=== PATIENT | female | born 1955 | race Caucasian/White ===

== ENCOUNTER → 2018-10-17 | Outpatient (CLI) | payer OTHER ==
[~2018-10-17] MED LIST: ATEN100T88 PO; FLUD0.1T7 PO
--- NOTE | 2018-10-17 17:56 | Diagnostic Imaging Report ---
PROCEDURE: CT abdomen and pelvis with and without contrast. TECHNIQUE: Precontrast acquisitions were acquired through the abdomen and pelvis. Multiple contiguous axial images were obtained through the abdomen and pelvis after the administration of intravenous contrast. INDICATION: Pelvic pain. COMPARISON: Study compared to 06/09/2016. FINDINGS: Thin-walled cystic mass in left adnexa today measures 5.2 x 4.5 cm, previously measuring 5.3 x 4.8 cm on the study of 2015. Heterogeneity of the uterus with a leftward oriented partly exophytic fibroid as well as likely a right fundal fibroid are better visualized at today's exam owing to the administration of contrast. The uterine morphology and volume have not significantly changed. There is some prominence of the left-sided gonadal vein and parametrial venous structures without vascular obstruction. This has not appreciably changed from prior. The gallbladder is surgically absent. The liver, spleen, adrenals, and pancreas are unremarkable. The unobstructed kidneys are unremarkable. No free air. No bowel obstruction nor ileus. No ascites, abscess, hematoma, or fluid collection. There is no appendicitis or diverticulitis. IMPRESSION: Thin-walled simple appearing left ovarian cyst, smaller than on prior. Probable uterine fibroids with some mild left-sided pelvic venous congestion without obstruction. No ascites or inflammatory process. No obstructive features or acute abnormalities. Dictated by: Dictated on workstation # [id number]
== END ==
LOC: RAD 13:51
PROVIDERS: ATTEND Obstetrics & Gynecology
DX: N83.202 Unspecified ovarian cyst, left side (principal); Z90.49 Acquired absence of other specified parts of digestive tract
CPT/HCPCS: 74178

== ENCOUNTER 2018-11-06 11:39 | Outpatient (CLI) | payer OTHER ==
[~2018-11-06] VITALS: Ht 152.4 cm; Wt 48.2 kg
[2018-11-06] MEDS ORDERED: NF-ESOM40C PO (12:04)
[2018-11-06] MEDS ORDERED: ATEN100T PO (12:04)
[2018-11-06] MEDS ORDERED: CA C1TAB75 PO (12:04)
[2018-11-06 13:21] LABS: BASOPHILS % (AUTO) 0 % (0-10); EOSINOPHILS # (AUTO) 0.1 10^3/uL (0.0-0.3); EOSINOPHILS % (AUTO) 2 % (0-10); HEMATOCRIT 41 % (35-52); HEMOGLOBIN 13.5 G/DL (11.5-16.0); LYMPHOCYTES # (AUTO) 1.9 X 10^3 (1.0-4.0); LYMPHOCYTES % (AUTO) 27 % (12-44); MEAN CORPUSCULAR HEMOGLOBIN 31 PG (25-34); MEAN CORPUSCULAR HGB CONC 33 G/DL (32-36); MEAN CORPUSCULAR VOLUME 93 FL (80-99); MEAN PLATELET VOLUME 10.1 FL (7.4-10.4); MONOCYTES # (AUTO) 0.5 X 10^3 (0.0-1.0); MONOCYTES % (AUTO) 8 % (0-12); NEUTROPHILS # (AUTO) 4.5 X 10^3 (1.8-7.8); NEUTROPHILS % (AUTO) 63 % (42-75); PLATELET COUNT 305 10^3/uL (130-400); RED CELL DISTRIBUTION WIDTH 13.8 % (10.0-14.5); WHITE BLOOD COUNT 7.1 10^3/uL (4.3-11.0)
== END 2018-11-06 16:00 ==
LOC: PREOP 11:39
PROVIDERS: ATTEND Obstetrics & Gynecology
DX: Z01.812 Encounter for preprocedural laboratory examination (principal); Z11.2 Encounter for screening for other bacterial diseases; D25.9 Leiomyoma of uterus, unspecified; R10.2 Pelvic and perineal pain
CPT/HCPCS: 36415; 85025; 86850; 86900; 86901; 87081; 93005

== ENCOUNTER 2018-11-15 08:18 | Day surgery (SDC) | payer OTHER ==
[~2018-11-15] VITALS: Ht 152.4 cm; Wt 48.2 kg
[~2018-11-15 08:18] MED LIST changes: +ATEN100T PO; +CA C1TAB75 PO; +NF-ESOM40C PO
[2018-11-15 08:30] VITALS: BP 129/84
[2018-11-15] MEDS ORDERED: LACTATED RINGERS 1,000 ML IV SCH ×2 (08:52→08:59)
--- NOTE | 2018-11-15 08:52 | Progress Note-Pre Operative ---
Pre-Operative Progress Note H&P Reviewed The H&P was reviewed, patient examined and no changes noted. Date Seen by Provider: Nov 15, 2018 Time Seen by Provider: 08:50 Date H&P Reviewed: Nov 15, 2018 Time H&P Reviewed: 08:50 Pre-Operative Diagnosis: Adnexal mass, Postmenopausal LEAH RUSH DO Nov 15, 2018 08:52
--- NOTE | 2018-11-15 08:54 | Discharge Inst-Women's Service ---
Discharge Inst-Women's Serv Depart Medication/Instructions New, Converted or Re-Newed RX: RX on Chart Consults/Follow Up Additional Follow Up: Yes Orders/Referrals Dr. Guerrero in 7-10 days and in 8 weeks Activity Activity: Activity as Tolerated Driving Instructions: No Driving for 1 Week NO SMOKING: NO SMOKING Nothing Inside Vagina: No Douching, No Joy, No Tampons Diet Discharge Diet: No Restrictions Symptoms to Report to : Bleeding Excessive, Pain Increased, Fever Over 101 Degrees F, Vaginal Bleeding Increase, Questions/Concerns For Any Problems or Questions: Contact Your Physician Skin/Wound Care Infection Signs and Symptoms: Increased Redness, Foul Odor of Wound, Increased Drainage, Skin Itchy or Has a Rash, Increased Swelling, Temperature Above 101 F Operative Area Clean and Dry: Keep Incision Clean/Dry Stitches/Rosana/Dermabond: Dermabond, Care of Stitches Bathing Instructions: LEAH Alexandre DO Nov 15, 2018 08:54
[2018-11-15] MEDS ORDERED: SIME80TA16 PO (08:55)
[2018-11-15] MEDS ORDERED: IBUP-844 PO (08:55)
[2018-11-15] MEDS ORDERED: HYDR-34 PO (08:55)
[2018-11-15] MEDS ORDERED: DOCU100C37 PO (08:55)
[2018-11-15] MEDS ORDERED: ONDANSETRON 4 MG/2 ML (SDV) Z0FRAN IV PRN (09:00)
[2018-11-15] MEDS ORDERED: CHLORASEPTIC LOZENGE MM PRN (09:00)
[2018-11-15] MEDS ORDERED: ANTACID SUSP 30 ML UDC (MYLANTA) PO PRN (09:00)
[2018-11-15] MEDS ORDERED: ZOLPIDEM 5 MG (AMBIEN) TAB PO PRN (09:00)
[2018-11-15] MEDS ORDERED: SIMETHICONE 80 MG (MYLICON) CHEW PO PRN (09:00)
[2018-11-15] MEDS ORDERED: ceFAZolin INJECTION 1,000 MG in WATER (STERILE) FOR INJECTION 10 ML IV ONE (09:00)
[2018-11-15] MEDS ORDERED: HYDROcodone/APAP 7.5 MG/325 MG (LORTAB, LORCET PLUS) TABLET PO PRN (09:00)
[2018-11-15] MEDS ORDERED: BUPIVACAINE 0.5% 30 ML (SENSORCAINE) VIAL ONE (09:13)
[2018-11-15] MEDS ORDERED: BUPIVACAINE 0.25% 30 ML (SENSORCAINE) VIAL ONE (09:13)
[2018-11-15] MEDS ORDERED: WATER (STERILE) FOR INJECTION 10 ML ONE (09:14)
[2018-11-15] MEDS ORDERED: FAMOTIDINE 20MG/2ML IV (PEPCID) ONE (09:14)
[2018-11-15] MEDS ORDERED: ceFAZolin INJECTION 1,000 MG ONE (09:14)
[2018-11-15] MEDS ORDERED: MIDAZOLAM 2 MG/2 ML (VERSED) VIAL ONE ×2 (09:14→09:18)
[2018-11-15] MEDS ORDERED: ROCURONIUM 10 MG/ML 5 ML SYRINGE IV ONE (09:17)
[2018-11-15] MEDS ORDERED: proPOfol 200 MG/20 ML (DIPRIVAN) VIAL IV ONE (09:17)
[2018-11-15] MEDS ORDERED: SEVOFLURANE (ULTANE) 15 ML INHAL SOLN ONE ×5 (09:17→11:58)
[2018-11-15] MEDS ORDERED: NEOSTIGMINE 1 MG/ML 5 ML SYRINGE ONE (09:17)
[2018-11-15] MEDS ORDERED: ONDANSETRON 4 MG/2 ML (SDV) Z0FRAN ONE (09:17)
[2018-11-15] MEDS ORDERED: LIDOCAINE PF 2% 5 ML (XYLOCAINE) VIAL ONE (09:17)
[2018-11-15] MEDS ORDERED: GLYCOPYRROLATE 0.2 MG/ML (ROBINUL) 2 ML VIAL ONE (09:17)
[2018-11-15] MEDS ORDERED: DEXAMETHASONE 10 MG/ML (DECADRON) 1 ML VIAL ONE (09:17)
[2018-11-15] MEDS ORDERED: fentaNYL INJECTION 100 MCG/2 ML AMP ONE (09:18)
[2018-11-15] MEDS ORDERED: MIDAZOLAM 2 MG/2 ML (VERSED) VIAL IV ONE (09:30)
[2018-11-15] MEDS ORDERED: FAMOTIDINE 20MG/2ML IV (PEPCID) IV ONE (09:30)
[2018-11-15] MEDS ORDERED: metroNIDAZOLE 500MG/100ML IVPB 100 ML IV ONE (09:45)
[2018-11-15] MEDS: LACTATED RINGERS 1,000 ML IV PRN ×2 (09:50→11:31)
[2018-11-15] MEDS ORDERED: LIDOCAINE/EPI 1%-1:100,000 (XYLOCAINE) 20ML ONE (10:34)
[2018-11-15] MEDS ORDERED: HYDROmorphone 2 MG/ML VIAL (DILAUDID) IV ONE (12:15)
[2018-11-15] MEDS ORDERED: ONDANSETRON 4 MG/2 ML (SDV) Z0FRAN IVP PRN (12:15)
[2018-11-15] MEDS ORDERED: KETOROLAC 30 MG/ML VIAL ONE (12:29)
[2018-11-15] MEDS: KETOROLAC 30 MG/ML VIAL IV PRN ×2 (12:32→18:19)
--- NOTE | 2018-11-15 13:10 | NUR ---
pt transferred to room 303 via bed with PACU staff @ side. report received from [place] Mason. care assumed of pt.
[2018-11-15 13:20] VITALS: BP 101/55
--- NOTE | 2018-11-15 14:48 | OPERATIVE REPORT ---
DATE OF SERVICE: PREOPERATIVE DIAGNOSIS: A 63-year-old female with enlarged cystic pelvic mass. POSTOPERATIVE DIAGNOSIS: A 63-year-old female with enlarged cystic pelvic mass. PROCEDURE: Robotic-assisted total laparoscopic hysterectomy with bilateral salpingo-oophorectomy. ANESTHESIA: General endotracheal. ESTIMATED BLOOD LOSS: Minimal. URINE OUTPUT: 300 mL clear at the end of the procedure. FLUIDS: Two liters of lactate Ringer solution. FINDINGS: An atrophic appearing uterus consistent with menopausal status. Grossly normal appearing bilateral fallopian tubes, grossly normal appearing right ovary; a left ovary, which is occupied by a large cystic structure, I would assume to be approximately 8 to 10 cm in diameter and appears to be simple and fluid filled. SPECIMEN SENT: Uterus, bilateral fallopian tubes and ovaries. INDICATIONS: This is a 63-year-old female patient that was sent to my office for chronic pelvic pain and the finding of an enlarging ovarian cyst that she has been following for several years. It was noted on ultrasound more recently to have grown in size and she was becoming acutely more uncomfortable. We discussed in the office for removal of this mass and we discussed the fashion in which doing it. We, briefly, had discussed doing laparotomy as the patient did want to keep her uterus if at all possible; however, I did ask her to consider performing hysterectomy not only due to the potential malignancy, but also due to an exit and removal of the mass itself through the vagina after removal of the uterus. The risk of the procedure was discussed with the patient in detail including risk of bleeding, infection, damage to surrounding structures including, but not limited to bowel, bladder, ureter, kidneys and possible need for reoperation. Postoperative precautions and postoperative recovery timeframe, restrictions were all discussed, risk from anesthesia risk of possible need for blood transfusion and even . After everything was discussed with the patient in detail, consent was obtained in the preoperative area and the patient was taken to the operating room. OPERATIVE REPORT IN DETAIL: Once in the operating room, general anesthesia was found to be adequate, placed in dorsal lithotomy position and prepped and draped in a normal sterile fashion. A Pop catheter was placed using a sterile technique after time out was performed. The patient has a very narrow vaginal introitus. Midline episiotomy was performed to allow a weighted speculum to be placed, so I could visualize the cervix, which was grasped at 12 o'clock position using a long Allis clamp and 0 Vicryl suture was placed at the anterior lip of the cervix and the Allis clamp was then removed. I then gently sound the uterine cavity and depth was found to be 8 cm. I selected an 8 cm Colleen uterine manipulator tip and a 4 cm colpotomy ring. I placed the manipulator tip and the uterus deploying the balloon and also advanced the colpotomy ring around the vaginal fornix, which after we did this, I was able to appreciate bimanual manipulation on bimanual exam. I then removed all of the instruments from the patient's vagina except for the Pop catheter and the Colleen. I then performed a change of gloves and took my attention digit to the abdomen where infraumbilically I infiltrated this area using 0.25% Marcaine and made an 8 mm incision and directed the Veress needle. The intraperitoneal placement was confirmed using saline drop test. I then proceeded with insufflation using CO2 gas and opening pressure of 4 mmHg was noted. I proceeded to maximum pressure of 15 mmHg at which point, I removed the Veress needle and introduced an 8 mm blunt da Kwaku camera trocar. Once this was in place, I was able to confirm intraperitoneal placement using the da Kwaku laparoscope. A brief scan of the upper abdominal anatomy appears to be grossly normal. Lower abdominal anatomy is listed in my findings above. The patient was placed in a steep Trendelenburg and I was able to visualize all my findings as described. I then placed two lateral trocars, placed approximately 8 cm lateral to my infraumbilical trocars and the skin was infiltrated using 0.25% Marcaine. The 8 mm incisions were made and trocars were placed under direct visualization of the laparoscope. Once these were in place, we brought in the da Kwaku robot and docked it in the appropriate fashion placing the vessel sealer in the left hand and the monopolar chichi in the right hand. I then placed the da Kwaku operative console and performed the following dissection bilaterally. First, I identified the ureters so that I may see the orientation throughout the dissection my process and can use for caution in my dissection to stay away from them. I then grasped the infundibulopelvic ligament, bipolar cauterized and transected it using the vessel sealer. I then grasped the round ligament, bipolar cauterized and transected it using the vessel sealer. I then grasped the entire broad ligament, bipolar cauterized and transected it using vessel sealer down to the level of the lower uterine segment, at which point I the anterior and posterior leaflets of the broad ligament. Anterior leaflet was taken around the anterior vaginal fornix. The posterior leaflet was taken around to the posterior vaginal fornix. This allows me to skeletonize the uterine vessels laterally, which were then bipolar cauterized and transected using the vessel sealer. I then performed a colpotomy at 12 o'clock position using the monopolar chichi and took this circumferentially around the vagina amputating the cervix from the vaginal fornix. The uterus, right tube and ovary were then removed through the vagina; however, I did amputate the left adnexa as the fallopian tube and the uteroovarian ligament using the monopolar chichi to allow removal in a separate specimen as well as to facilitate the removal as I do not feel it would fit through the vagina. I introduced a 12 cm Endopouch bag to the vagina, deploying the bag I was able to place the cyst with manipulation into the bag without rupturing it. The bag was then cinched down and I was able to remove the cyst without rupturing it through the vagina. I then performed a change of instruments on the robot and proceeded with closing the vaginal cuff with 2-0 Vicryl suture and the lateral vaginal apices in a [id number] fashion, it was used to colposuspend the vagina to the uterosacral ligaments. The remainder of the vagina was then closed using a 2-0 V-Loc in a running fashion, after which there was no active bleeding noted from any of my dissection planes. I then undocked the da Kwaku robot and proceeded with removal of the case laparoscopically. I copiously irrigated the pelvis using normal saline and once again, there was no active bleeding noted from any of dissection planes. I placed Surgiflo hemostatic agent over all my planes of dissection and had the patient taken out of steep Trendelenburg. I then removed the lateral trocars under direct visualization of the laparoscope. The infraumbilical trocar was left in place to release insufflation and to introduce 10 mL of 0.25% Marcaine in the peritoneal cavity for postoperative pain management. I then removed the trocar as well. I then closed the skin using 4-0 Monocryl interrupted subcuticular stitches. Dermabond was applied to the incision and Band-Aids were placed over the incisions as well. The patient tolerated the procedure well and was taken to the recovery area in a stable condition. Lap and sponge counts were correct at the end of the procedure and instrument counts correct as well. One gram of Ancef and 500 mg of Flagyl given preoperatively for infection prophylaxis. Pop catheter was left in place. Job ID: [id number] DocumentID: [id number] Dictated Date: 11/15/2018 12:14:04 Orthopaedic Surgeon Date: 11/15/2018 14:48:26 Dictated By: LEAH RUSH DO
--- NOTE | 2018-11-15 15:35 | NUR ---
hough catheter dc'd. 75cc urine noted. v-pad in place.
[2018-11-15 15:40] VITALS: BP 114/69
--- NOTE | 2018-11-15 16:35 | NUR ---
here to see pt.
--- NOTE | 2018-11-15 17:00 | NUR ---
assisted up to BR. voided 200cc urine. amanda-care offered. v-pad and panties in place.
--- NOTE | 2018-11-15 18:17 | NUR ---
assisted up to void. 200cc urine noted. scant vaginal bleeding noted on v-pad.
--- NOTE | 2018-11-15 18:18 | NUR ---
was called r/t IV infiltration. may dc IV
--- NOTE | 2018-11-15 18:30 | NUR ---
IV site dc'd
--- NOTE | 2018-11-15 18:36 | NUR ---
RT notified of IS order
--- NOTE | 2018-11-15 19:08 | NUR ---
report given to next shift.
[2018-11-15 23:15] VITALS: BP 97/58
[2018-11-15] MEDS: IBUPROFEN 600 MG (MOTRIN) TAB PO PRN (23:15)
[2018-11-15] MEDS: DOCUSATE SODIUM 100 MG (COLACE) CAP PO PRN (23:15)
[2018-11-16 05:34] VITALS: BP 88/47
[2018-11-16] MEDS: IBUPROFEN 600 MG (MOTRIN) TAB PO PRN (05:34)
--- NOTE | 2018-11-16 05:34 | NUR ---
At time of vs, pt under multiple blankets while room set to colder setting.
--- NOTE | 2018-11-16 07:00 | NUR ---
REPORT FROM YULI CASIANO.
--- NOTE | 2018-11-16 07:09 | Anesthesia-General Post-Op ---
General Patient Condition Mental Status/LOC: Same as Preop Cardiovascular: Satisfactory Nausea/Vomiting: Absent Respiratory: Satisfactory Pain: Controlled Complications: Absent Post Op Complications Complications None Follow Up Care/Instructions Patient Instructions None needed. Anesthesia/Patient Condition Patient Condition Patient is doing well, no complaints, stable vital signs, no apparent adverse anesthesia problems. No complications reported per nursing. DALILA ROCHE CRNA Nov 16, 2018 07:09
[2018-11-16 08:00] VITALS: BP 100/57
--- NOTE | 2018-11-16 08:00 | NUR ---
INITIAL ASSESSMENT COMPLETED AT BEDSIDE, VSS, SEE INTERVENTIONS FOR DETAILED ASSESSMENTS, PLAN OF CARE EXPLAINED, WILL MONITOR CLOSELY.
--- NOTE | 2018-11-16 09:15 | NUR ---
DR RUSH HERE NEW ORDERS RECEIVED
[2018-11-16] MEDS: DOCUSATE SODIUM 100 MG (COLACE) CAP PO PRN (09:46)
--- NOTE | 2018-11-16 10:10 | NUR ---
PT UP TO SHOWER, NO DISTRESS NOTED, [facility] CALLED FOR TRANSPORTATION HOME.
--- NOTE | 2018-11-16 10:15 | NUR ---
FOLLOW UP APPOINTMENTS MADE FOR PT.
--- NOTE | 2018-11-16 10:30 | NUR ---
D/C INSTRUCTIONS EXPLAINED, SIGNED NO QUESTIONS NOTED, SIGNED, PT VERBALIZES UNDERSTANDING OF FOLLOW UP CARE AND PROCEDURES.
--- NOTE | 2018-11-16 11:00 | NUR ---
PT D/C'D BY WC TO FRONT ENTRANCE OF HOSPITAL FOR D/C HOME BY [facility], PT ASSISTED IN [facility] BY RN AND SON, NO DISTRESS NOTED, PT TO FOLLOW UP WITH DR SCHEDULED.
== END 2018-11-16 11:00 | disposition home or self-care (01) ==
LOC: SDC 08:18 → LDRP 13:10 → SDC 11-16 11:00
PROVIDERS: ATTEND Obstetrics & Gynecology
DX: D25.1 Intramural leiomyoma of uterus (principal); D25.2 Subserosal leiomyoma of uterus; N72 Inflammatory disease of cervix uteri; N87.9 Dysplasia of cervix uteri, unspecified; N83.201 Unspecified ovarian cyst, right side; N83.202 Unspecified ovarian cyst, left side; N83.8 Other noninflammatory disorders of ovary, fallopian tube and broad ligament; I10 Essential (primary) hypertension; K21.9 Gastro-esophageal reflux disease without esophagitis; K44.9 Diaphragmatic hernia without obstruction or gangrene; Z79.899 Other long term (current) drug therapy
CPT/HCPCS: 86850; 86900; 86901; 88307; 90471; 94664

== ENCOUNTER 2019-06-29 11:45 | Emergency (ER) | payer SELFPAY ==
[~2019-06-29] VITALS: Ht 154.9 cm; Wt 47.6 kg
[~2019-06-29 11:45] MED LIST changes: +DOCU100C37 PO; +HYDR-34 PO; +IBUP-844 PO; +SIME80TA16 PO
--- NOTE | 2019-06-29 12:22 | ED Head Injury ---
General Chief Complaint: Head/Cervical Problems Stated Complaint: HEADACHE Nursing Triage Note: PT STATES SHE FELL ON 06/13/19 AND HIT HER HEAD. PT REPORTS BUMP ON POSTERIOR HEAD. PT REPORTS HEADACHE, DIFFICULTY FORMING WORDS, NAUSEA, CONFUSION, DIZZYNESS. PT REPORTS GETTING HIT IN THE HEAD WHEN A LAMP FELL IN THE SAME AREA 2 DAYS AFTER THE INITIAL FALL. PT REPORTS HX OF HEAD INJURIES AND MULTIPLE CONCUSIONS. Source: patient Exam Limitations: no limitations History of Present Illness Date Seen by Provider: Jun 29, 2019 Time Seen by Provider: 12:21 Initial Comments ER with reports of persistent headache, difficulty following words, nausea, dizziness and intermittent confusion. Fell and hit her head on 06/13/19 and then subsequently began when a lamp fell on the same area 2 days later. Presented to [facility] this morning and was referred to the emergency room for evaluation with CT she states that she has a history of concussions previously, one in particular took about 6 weeks to recover from. She comes in today because of the persistent headaches not alleviated by ibuprofen at home. Occurred: other Severity: moderate Location: frontal Method of Injury: direct blow, fell Loss of Consciousness: no loss of consciousness Associated Systoms: Headaches, Nausea/Vomiting Allergies and Home Medications Allergies Coded Allergies: Penicillins (Unverified Allergy, Severe, BREATHING DIFFICULTY, 11/06/18) ampicillin (Unverified Allergy, Severe, BREATHING DIFFICULTY, 11/06/18) vancomycin (Unverified Allergy, Severe, BREATHING DIFFICULTY, 11/06/18) Home Medications Atenolol 100 Mg Tablet, 100 MG PO DAILY, (Reported) Ca Carbonate/Vitamin D3/Vit K 1 Each Tab.chew, 1 EACH PO DAILY, (Reported) Docusate Sodium 100 Mg Capsule, 100 MG PO BID PRN for CONSTIPATION-1ST LINE Prescribed by: LEAH RUSH on 11/15/18 0855 Esomeprazole Magnesium 40 Mg Cap, 40 MG PO DAILY PRN for HEARTBURN, (Reported) Hydrocodone Bit/Acetaminophen 1 Ea Tablet, 2 EA PO Q6H PRN for Pain-See Instructions Prescribed by: LEAH RUSH on 11/15/18 0855 Ibuprofen 600 Mg Tablet, 600 MG PO Q6H PRN for PAIN-MODERATE Prescribed by: LEAH RUSH on 11/15/18 0855 Simethicone 80 Mg Tab.chew, 40 MG PO TID PRN for INDIGESTION 2ND LINE Prescribed by: LEAH RUSH on 11/15/18 0855 Patient Home Medication List Home Medication List Reviewed: Yes Review of Systems Review of Systems Constitutional: see HPI Eyes: No Symptoms Reported Ears, Nose, Mouth, Throat: no symptoms reported Respiratory: no symptoms reported Cardiovascular: no symptoms reported Gastrointestinal: nausea Genitourinary: no symptoms reported Musculoskeletal: no symptoms reported Skin: no symptoms reported Psychiatric/Neurological: See HPI, Cognitive Dysfunction, Headache Past Sxyywvc-Yiyzfa-Bbwvbj Hx Patient Social History 2nd Hand Smoke Exposure: No Recent Foreign Travel: No Contact w/Someone Who Travel: No Recent Infectious Disease Expo: No Recent Hopitalizations: No Physical Abuse: No Sexual Abuse: No Mistreated: No Fear: No Seasonal Allergies Seasonal Allergies: No Past Medical History Surgeries: Yes ( c-sections, bunions, pacemaker AND REMOVAL, CATARACTS) Appendectomy, Gallbladder, Tonsillectomy Respiratory: No Cardiac: Yes (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) Neurological: No Reproductive Disorders: No Female Reproductive Disorders: Menstrual Problems Sexually Transmitted Disease: No HIV/AIDS: No Genitourinary: No Gastrointestinal: Yes Gastroesophageal Reflux, Hiatal Hernia Musculoskeletal: No Endocrine: No HEENT: No (READING GLASSES) Loss of Vision: Bilateral Hearing Impairment: Denies Cancer: No Psychosocial: Yes (AT TIMES) Anxiety Integumentary: No (RED SPOTS ON THIGH) Blood Disorders: No Adverse Reaction/Blood Tranf: No (N/A) Physical Exam Vital Signs Vital Signs - First Documented 06/29/19 12:12 Temp 36.6 Pulse 57 Resp 17 B/P (MAP) 152/90 (110) O2 Delivery Room Air Capillary Refill : Less Than 3 Seconds Height, Weight, BMI Height: 5'0.00" Weight: 106lbs. 4.0oz. [id number]; 19.00 BMI Method:Stated General Appearance: WD/WN, no apparent distress HEENT: PERRL/EOMI, normal ENT inspection, other (minor yellowish ecchymosis around the left eye) Neck: non-tender, full range of motion Cardiovascular: regular rate, rhythm, no murmur Respiratory: lungs clear, normal breath sounds, no respiratory distress, no accessory muscle use Gastrointestinal: normal bowel sounds, non tender Extremities: normal range of motion, non-tender Psychiatric: alert, oriented x 3 Crainal Nerves: normal hearing, normal speech, PERRL Skin: normal color, warm/dry Hayden Coma Score Best Eye Response: (4) Open Spontaneously Best Verbal Response: (5) Oriented Best Motor Response: (6) Obeys Commands Hayden Total: 15 Progress/Results/Core Measures Results/Orders My Orders Orders - YOLANDE SNYDER APRN Ct Head/Cervical Spine Wo (06/29/19 12:12) Vital Signs/I&O 06/29/19 12:12 Temp 36.6 Pulse 57 Resp 17 B/P (MAP) 152/90 (110) O2 Delivery Room Air Blood Pressure Mean: 110 POS Departure Impression Primary Impression: Brain concussion Disposition: HOME, SELF-CARE Condition: Stable Departure-Patient Inst. Decision time for Depature: 13:10 Referrals: ANGIE MCCALL MD (PCP/Family) Primary Care Physician Patient Instructions: Concussion, Adult (DC) Add. Discharge Instructions: 1. Medication as directed 2. Follow-up with health next week for recheck return to ER for any worsening or other concerns. All discharge instructions reviewed with patient and/or family. Voiced understanding. Scripts Butalbital/Aspirin/Caffeine (Fiorinal 50-325-40 mg Capsule) 1 Each Capsule 1 EACH PO Q4H PRN for PAIN-SEVERE (8-10), #14 CAP Prov: YOLANDE SNYDER APRN 06/29/19 YOLANDE SNYDER APRN Jun 29, 2019 12:22 POS
--- NOTE | 2019-06-29 12:31 | NUR ---
TO ROOM NO CHANGE FROM TRIAGE NOTE.
--- NOTE | 2019-06-29 12:53 | Diagnostic Imaging Report ---
PROCEDURE: CT head and CT cervical spine without contrast. TECHNIQUE: Multiple contiguous axial images were obtained through the brain and cervical spine without the use of intravenous contrast. Sagittal and coronal reformations through the cervical spine were then performed. Auto Exposure Controls were utilized during the CT exam to meet ALARA standards for radiation dose reduction. INDICATION: Fall two weeks ago, complaining of neck pain and headache. Correlation is made with prior head CT from 10/21/2012. CT Head: FINDINGS: The ventricles and sulci are within normal limits. No sulcal effacement or midline shift is detected. No acute intra-axial or extra-axial hemorrhage is detected. Cisterns are patent. Visualized paranasal sinuses are clear. IMPRESSION: No acute intracranial process is detected. CT cervical spine: FINDINGS: Curvature of the cervical spine is normal. There is minimal retrolisthesis of C4 on C5. Multilevel degenerative disc disease is noted with disc space narrowing and marginal spurring, greatest at C3-C4 through C6-C7 levels. Prevertebral tissues are within normal limits. No fractures are seen. Odontoid is intact. IMPRESSION: Cervical spondylosis. No acute bony abnormality is detected. Dictated by: Dictated on workstation # [id number]
[2019-06-29] MEDS ORDERED: BUTA1CAP17 PO (13:12)
[2019-06-29 13:33] VITALS: BP 124/74
== END 2019-06-29 13:33 | disposition home or self-care (01) ==
LOC: EDUNIT# 11:45 → ER 11:46
DX: S06.0X0A Concussion without loss of consciousness, initial encounter (principal); K21.9 Gastro-esophageal reflux disease without esophagitis; F41.9 Anxiety disorder, unspecified; R40.2142 Coma scale, eyes open, spontaneous, at arrival to emergency department; R40.2252 Coma scale, best verbal response, oriented, at arrival to emergency department; R40.2362 Coma scale, best motor response, obeys commands, at arrival to emergency department; Z88.0 Allergy status to penicillin; Z88.1 Allergy status to other antibiotic agents; Z95.0 Presence of cardiac pacemaker; Z90.49 Acquired absence of other specified parts of digestive tract; Z90.89 Acquired absence of other organs; W20.8XXA Other cause of strike by thrown, projected or falling object, initial encounter
CPT/HCPCS: 70450; 72125

== ENCOUNTER 2022-10-10 09:45 | Emergency (ER) | payer SELFPAY ==
[~2022-10-10] VITALS: Ht 152 cm; Wt 50.0 kg
[~2022-10-10 09:45] MED LIST changes: +BUTA1CAP17 PO
--- NOTE | 2022-10-10 10:43 | ED Abdominal Pain ---
General Chief Complaint: Abdominal/GI Problems Stated Complaint: UTI | ABD PAIN Nursing Triage Note: Pt reports left sided abd pain since June. Pain worse today. Pt states she was seen at [facility] earlier and had UA done and was given RX of bactrim on 09/28. Pt has finished antibiotics and is not feeling better. Source of Information: Patient Exam Limitations: No Limitations History of Present Illness Date Seen by Provider: Oct 10, 2022 Time Seen by Provider: 10:43 Initial Comments Patient is a 67-year-old female who presents to the emergency room with a chief complaint of left-sided abdominal pain. She has had this intermittently since June, was diagnosed with a urinary tract infection about 2 weeks ago. She has not had dysuria but has had urinary frequency. Finished up Bactrim antibiotics last Monday 2 days ago. She states she is continue to have increasing pain and points to the suprapubic region as well as the left flank. No nausea or vomiting. No blood in her urine that she has noticed. No black or bloody stools or diarrhea. She has had previous left-sided ovarian cyst that was removed by Dr. Guerrero. She denies fevers or chills but does not have a thermometer. Movement and laying flat make her pain worse. Drawing her left leg up makes her abdomen feel a little better. No associated COVID type symptoms. She has had previous . She is on atenolol for blood pressure, that is her only medication. All other review of systems reviewed and negative except as stated. Timing/Duration: Getting Worse, Other (2 weeks) Severity/Quality: Severe ("8"), Aching Location: LLQ, Flank (Left flank) Radiation: Back (Left flank) Associated Symptoms: Denies Symptoms Allergies and Home Medications Allergies Coded Allergies: Penicillins (Unverified Allergy, Severe, BREATHING DIFFICULTY, 11/06/18) ampicillin (Unverified Allergy, Severe, BREATHING DIFFICULTY, 11/06/18) vancomycin (Unverified Allergy, Severe, BREATHING DIFFICULTY, 11/06/18) Patient Home Medication List Home Medication List Reviewed: Yes Atenolol (Atenolol) 100 Mg Tablet, 100 MG PO DAILY, (Reported) Entered as Reported by: DAVID ANDERSON on 11/06/18 1204 Butalbital/Aspirin/Caffeine (Fiorinal 50-325-40 mg Capsule) 1 Each Capsule, 1 EACH PO Q4H PRN for PAIN-SEVERE (8-10) Prescribed by: YOLANDE SNYDER on 06/29/19 1312 Ca Carbonate/Vitamin D3/Vit K (Calcium + D Soft Chewable Tab) 1 Each Tab.chew, 1 EACH PO DAILY, (Reported) Entered as Reported by: DAVID ANDERSON on 11/06/18 1204 Docusate Sodium (Docusate Sodium) 100 Mg Capsule, 100 MG PO BID PRN for CONSTIPATION-1ST LINE Prescribed by: LEAH GUERRERO on 11/15/18 0855 Esomeprazole Magnesium (Nexium) 40 Mg Cap, 40 MG PO DAILY PRN for HEARTBURN, (Reported) Entered as Reported by: DAVID ANDERSON on 11/06/18 1204 Hydrocodone Bit/Acetaminophen (Lortab 7.5 Mg Tablet) 1 Ea Tablet, 2 EA PO Q6H PRN for Pain-See Instructions Prescribed by: LEAH GUERRERO on 11/15/18 0855 Ibuprofen (Ibu) 600 Mg Tablet, 600 MG PO Q6H PRN for PAIN-MODERATE Prescribed by: LEAH GUERRERO on 11/15/18 0855 Simethicone (Simethicone) 80 Mg Tab.chew, 40 MG PO TID PRN for INDIGESTION 2ND LINE Prescribed by: LEAH GUERRERO on 11/15/18 0855 Review of Systems Review of Systems Constitutional: see HPI Respiratory: No Symptoms Reported Cardiovascular: No Symptoms Reported Gastrointestinal: Abdominal Pain Genitourinary: Frequency Musculoskeletal: back pain (left back and flank pain) Skin: no symptoms reported Psychiatric/Neurological: No Symptoms Reported All Other Systems Reviewed Negative Unless Noted: Yes Past Uqqvgbw-Tqfyjk-Fpvsng Hx Patient Social History Tobacco Use?: No Substance use?: No Alcohol Use?: No Immunizations Up To Date Influenza Vaccine Up-to-Date: Yes; Up-to-Date Seasonal Allergies Seasonal Allergies: No Past Medical History Surgeries: Yes ( c-sections, bunions, pacemaker AND REMOVAL, CATARACTS) Appendectomy, Gallbladder, Hysterectomy, Tonsillectomy Respiratory: No Cardiac: Yes (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) Hypertension Neurological: No Reproductive Disorders: No Female Reproductive Disorders: Menstrual Problems Sexually Transmitted Disease: No HIV/AIDS: No Genitourinary: No Gastrointestinal: Yes Gastroesophageal Reflux, Hiatal Hernia Musculoskeletal: No Endocrine: No HEENT: No (READING GLASSES) Loss of Vision: Bilateral Hearing Impairment: Denies Cancer: No Psychosocial: Yes (AT TIMES) Anxiety Integumentary: No (RED SPOTS ON THIGH) Blood Disorders: No Adverse Reaction/Blood Tranf: No (N/A) Physical Exam Vital Signs Vital Signs - First Documented 10/10/22 10:16 Pulse 62 Resp 18 B/P (MAP) 151/92 (111) Pulse Ox 98 O2 Delivery Room Air Capillary Refill : Less Than 3 Seconds Height/Weight/BMI Height: 5'0.00" Weight: 106lbs. 4.0oz. 48.319177ia; 21.00 BMI Method:Stated General Appearance: WD/WN, no apparent distress, thin Respiratory: lungs clear, normal breath sounds, no respiratory distress, no accessory muscle use Cardiovascular: regular rate, rhythm Gastrointestinal: soft, tenderness (mild suprapubic tenderness; no rebound or guarding; normal BS) Extremities: normal range of motion, normal inspection, normal capillary refill Back: normal inspection, no CVA tenderness Neurologic/Psychiatric: no motor/sensory deficits, alert, normal mood/affect, oriented x 3 Skin: normal color, warm/dry; No rash Progress/Results/Core Measures Results/Orders Lab Results Laboratory Tests Test 10/10/22 10:24 10/10/22 10:38 Range/Units Urine Color YELLOW Urine Clarity CLEAR Urine pH 6.0 5-9 Urine Specific [place] <=1.005 1.016-1.022 Urine Protein NEGATIVE NEGATIVE Urine Glucose (UA) NEGATIVE NEGATIVE Urine Ketones NEGATIVE NEGATIVE Urine Nitrite NEGATIVE NEGATIVE Urine Bilirubin NEGATIVE NEGATIVE Urine Urobilinogen 0.2 < = 1.0 MG/DL Urine Leukocyte Esterase NEGATIVE NEGATIVE Urine RBC (Auto) NEGATIVE NEGATIVE Urine RBC NONE /HPF Urine WBC NONE /HPF Urine Crystals NONE /LPF Urine Bacteria NEGATIVE /HPF Urine Casts NONE /LPF Urine Mucus NEGATIVE /LPF Urine Culture Indicated NO White Blood Count 9.6 4.3-11.0 10^3/uL Red Blood Count 4.43 3.80-5.11 10^6/uL Hemoglobin 12.6 11.5-16.0 g/dL Hematocrit 39 35-52 % Mean Corpuscular Volume 87 80-99 fL Mean Corpuscular Hemoglobin 28 25-34 pg Mean Corpuscular Hemoglobin Concent 33 32-36 g/dL Red Cell Distribution Width 14.1 10.0-14.5 % Platelet Count 370 130-400 10^3/uL Mean Platelet Volume 10.4 9.0-12.2 fL Immature Granulocyte % (Auto) 0 % Neutrophils (%) (Auto) 75 42-75 % Lymphocytes (%) (Auto) 18 12-44 % Monocytes (%) (Auto) 5 0-12 % Eosinophils (%) (Auto) 1 0-10 % Basophils (%) (Auto) 0 0-10 % Neutrophils # (Auto) 7.2 1.8-7.8 10^3/uL Lymphocytes # (Auto) 1.8 1.0-4.0 10^3/uL Monocytes # (Auto) 0.5 0.0-1.0 10^3/uL Eosinophils # (Auto) 0.1 0.0-0.3 10^3/uL Basophils # (Auto) 0.0 0.0-0.1 10^3/uL Immature Granulocyte # (Auto) 0.0 0.0-0.1 10^3/uL Sodium Level 140 135-145 MMOL/L Potassium Level 4.1 3.6-5.0 MMOL/L Chloride Level 106 98-107 MMOL/L Carbon Dioxide Level 23 21-32 MMOL/L Anion Gap 11 5-14 MMOL/L Blood Urea Nitrogen 9 7-18 MG/DL Creatinine 0.77 0.60-1.30 MG/DL Estimat Glomerular Filtration Rate 84 BUN/Creatinine Ratio 12 Glucose Level 93 70-105 MG/DL Calcium Level 9.1 8.5-10.1 MG/DL My Orders Orders - RAMOS DAVALOS MD Ed Iv/Invasive Line Start (10/10/22 10:50) Cbc With Automated Diff (10/10/22 10:50) Basic Metabolic Panel (10/10/22 10:50) Ua Culture If Indicated (10/10/22 10:50) Ns Iv 1000 Ml (Sodium Chloride 0.9%) (10/10/22 10:51) Ct Abdomen/Pelvis W (10/10/22 11:34) Iohexol Injection (Omnipaque 350 Mg/Ml 1 (10/10/22 11:45) Received Contrast (Hold Metformin- Contr (10/10/22 11:45) Ns (Ivpb) (Sodium Chloride 0.9% Ivpb Bag (10/10/22 11:45) Medications Given in ED Current Medications Medications Dose Ordered Sig/Tello Route Start Time Stop Time Status Last Admin Dose Admin Iohexol 75 ml ONCE ONCE IV 10/10/22 11:45 10/10/22 11:48 DC 10/10/22 12:27 58 ML Sodium Chloride 100 ml ONCE ONCE IV 10/10/22 11:45 10/10/22 11:48 DC 10/10/22 12:28 100 ML Vital Signs/I&O 10/10/22 10:16 Pulse 62 Resp 18 B/P (MAP) 151/92 (111) Pulse Ox 98 O2 Delivery Room Air Blood Pressure Mean: 111 Progress Progress Note : Time: 12:30 Progress Note Patient seen and evaluated by me. 67yo femal with LLQ abdominal pain, concern for UTI that is not getting better. Eval today includes physical exam, basic labs - CBC, BMP and UA. Patient's exam is pertinent for thin appearing elderly lady, holding her left leg flexed at the hip due to LLQ pain. Abdomen exam reveals +BS, non distended, no involuntary guarding; abdomen is tender in the suprapubic region and left flank. No CVA tenderness. No rashes on the skin. No focal neuro deficits. VSS. Afebrile. DDX based on h& P include, kidney stone, pyelonephritis, diverticulitis, enteritis. After reviewing labs - which are all within normal limits, I felt that imaging with CT with IV contrast of the abdomen and pelvis may further delineate pa thology. Patient was treated with IVF (NS). 1256 Patient re-evaluated. Pain has completely resolved. CT abd/pelvis showed find ings supicious for mild ileus/enteritis. No other concerning pathology per radiologist. Her VS are stable. I spoke with her at length about symptoms to watch for, to include fever, vomiting, bloody stool. I recommended over the counter aleve (generic) 1-2 pills twice a day with food. She is comfortable with the plan of care. All questions are sought and answered and patient is stable for discharge. Diagnostic Imaging Diagonstic Imaging: CT Comments [facility]. [place], [place] NAME: [facility]ADOMINIQUE [facility] REC#: [id number] PT STATUS: REG ER : 1955 PHYSICIAN: RAMOS DAVALOS MD ADMIT DATE: 10/10/22/ER Draft Date of Exam:10/10/22 CT ABDOMEN/PELVIS W PROCEDURE: CT abdomen and pelvis with contrast. TECHNIQUE: Multiple contiguous axial images were obtained through the abdomen and pelvis after administration of intravenous contrast. Auto Exposure Controls were utilized during the CT exam to meet ALARA standards for radiation dose reduction. All CT scans use one or more of the following dose optimizing techniques: Automated exposure control, MA and/or KvP adjustment based on patient size and exam type or iterative reconstruction. INDICATION: 67-year-old female, back pain, bladder pain. Has had left-sided abdominal pain since June but increased in severity today. CORRELATION STUDY: CT abdomen and pelvis 10/17/2018. FINDINGS: LOWER THORAX: Patchy areas of consolidation and airspace disease with somewhat tree-in-bud type appearance noted. Most pronounced in the right lower lobe. Slight bronchiectasis and consolidation of the lingula, the left upper lobe, and right middle lobe in similar location. Heart size is borderline enlarged. Small esophageal hernia. LIVER: Unremarkable. GALLBLADDER: Cholecystectomy. No overt bile duct dilatation. SPLEEN: Unremarkable. PANCREAS: Unremarkable. ADRENAL GLANDS: Unremarkable. KIDNEYS: Unchanged probable small left cortical cyst. Otherwise, normal enhancement of both kidneys. Slight prominent appearance about the left renal pelvis but appears generally stable. Calcifications in the pelvis appear to reflect phleboliths. No definitive ureteric calcifications. ABDOMINAL AORTA: Mild wall calcification, nonaneurysmal. GASTROINTESTINAL TRACT: A few fluid- and gas-filled loops of small bowel along with some fecalized material could be reflective of nonspecific ileus and/or enteritis. No evidence for appendicitis. URINARY BLADDER: Unremarkable. REPRODUCTIVE: Hysterectomy. OSSEOUS STRUCTURES: No acute abnormality. OTHER: None. IMPRESSION: 1. Question mild ileus/enteritis. No gastrointestinal tract obstruction. 2. Generally unremarkable appearance of the kidneys. No abnormal enhancement, perinephric fluid and/or obstructive uropathy. Dictated on workstation # [id number] Dict: 10/10/22 1228 Trans: 10/10/22 1240 [id number] Interpreted by: RHINA MCKEON DO Electronically signed by: Departure Impression Primary Impression: Abdominal pain Qualified Codes: R10.32 - Left lower quadrant pain Disposition: 01 HOME, SELF-CARE Condition: Improved Departure-Patient Inst. Decision time for Depature: 12:59 Referrals: ANGIE MCCALL MD (PCP/Family) Primary Care Physician Patient Instructions: Abdominal Pain, Adult ED Add. Discharge Instructions: Drink plenty of fluids to stay well hydrated. If the pain returns you can take over the counter Aleve (naproxen is the generic) 2 pills twice a day with food as needed. Monitor for worsening symptoms such as fever, vomiting or bloody stools, if these occur, please return to the Emergency Department for re-evaluation. Copy Copies To 1: ANGEI MCCALL MD, KATHRYN M MD Oct 10, 2022 10:43
[2022-10-10] MEDS ORDERED: NS IV 1000 ML 1,000 ML IV STA (10:51)
[2022-10-10 10:55] LABS: BILIRUBIN,URINE NEGATIVE (NEGATIVE); CLARITY,URINE CLEAR; COLOR,URINE YELLOW; GLUCOSE, URINE (UA) NEGATIVE (NEGATIVE); KETONES,URINE NEGATIVE (NEGATIVE); LEUKOCYTE ESTERASE ,URINE NEGATIVE (NEGATIVE); NITRITE,URINE NEGATIVE (NEGATIVE); PROTEIN,URINE NEGATIVE (NEGATIVE)
[2022-10-10 10:56] LABS: BASOPHILS % (AUTO) 0 % (0-10); EOSINOPHILS # (AUTO) 0.1 10^3/uL (0.0-0.3); EOSINOPHILS % (AUTO) 1 % (0-10); HEMATOCRIT 39 % (35-52); HEMOGLOBIN 12.6 g/dL (11.5-16.0); LYMPHOCYTES # (AUTO) 1.8 10^3/uL (1.0-4.0); LYMPHOCYTES % (AUTO) 18 % (12-44); MEAN CORPUSCULAR HEMOGLOBIN 28 pg (25-34); MEAN CORPUSCULAR HGB CONC 33 g/dL (32-36); MEAN CORPUSCULAR VOLUME 87 fL (80-99); MEAN PLATELET VOLUME 10.4 fL (9.0-12.2); MONOCYTES # (AUTO) 0.5 10^3/uL (0.0-1.0); MONOCYTES % (AUTO) 5 % (0-12); NEUTROPHILS # (AUTO) 7.2 10^3/uL (1.8-7.8); NEUTROPHILS % (AUTO) 75 % (42-75); PLATELET COUNT 370 10^3/uL (130-400); WHITE BLOOD COUNT 9.6 10^3/uL (4.3-11.0)
[2022-10-10 11:00] LABS: POTASSIUM 4.1 MMOL/L (3.6-5.0)
[2022-10-10 11:01] LABS: CALCIUM 9.1 MG/DL (8.5-10.1)
[2022-10-10 11:06] LABS: CREATININE SERUM 0.77 MG/DL (0.60-1.30)
[2022-10-10 11:08] LABS: BACTERIA,URINE NEGATIVE /HPF
[2022-10-10] MEDS ORDERED: HOLD METFORMIN - RECEIVED CONTRAST 20 ML VIAL IV SCH (11:45)
[2022-10-10] MEDS ORDERED: NS 100 ML (IVPB) BAG IV ONE (11:45)
[2022-10-10] MEDS ORDERED: IOHEXOL 350 MG/ML 100 ML (OMNIPAQUE 350) VIAL IV ONE (11:45)
--- NOTE | 2022-10-10 12:41 | Diagnostic Imaging Report ---
PROCEDURE: CT abdomen and pelvis with contrast. TECHNIQUE: Multiple contiguous axial images were obtained through the abdomen and pelvis after administration of intravenous contrast. Auto Exposure Controls were utilized during the CT exam to meet ALARA standards for radiation dose reduction. All CT scans use one or more of the following dose optimizing techniques: Automated exposure control, MA and/or KvP adjustment based on patient size and exam type or iterative reconstruction. INDICATION: 67-year-old female, back pain, bladder pain. Has had left-sided abdominal pain since June but increased in severity today. CORRELATION STUDY: CT abdomen and pelvis 10/17/2018. FINDINGS: LOWER THORAX: Patchy areas of consolidation and airspace disease with somewhat tree-in-bud type appearance noted. Most pronounced in the right lower lobe. Slight bronchiectasis and consolidation of the lingula, the left upper lobe, and right middle lobe in similar location. Heart size is borderline enlarged. Small esophageal hernia. LIVER: Unremarkable. GALLBLADDER: Cholecystectomy. No overt bile duct dilatation. SPLEEN: Unremarkable. PANCREAS: Unremarkable. ADRENAL GLANDS: Unremarkable. KIDNEYS: Unchanged probable small left cortical cyst. Otherwise, normal enhancement of both kidneys. Slight prominent appearance about the left renal pelvis but appears generally stable. Calcifications in the pelvis appear to reflect phleboliths. No definitive ureteric calcifications. ABDOMINAL AORTA: Mild wall calcification, nonaneurysmal. GASTROINTESTINAL TRACT: A few fluid- and gas-filled loops of small bowel along with some fecalized material could be reflective of nonspecific ileus and/or enteritis. No evidence for appendicitis. URINARY BLADDER: Unremarkable. REPRODUCTIVE: Hysterectomy. OSSEOUS STRUCTURES: No acute abnormality. OTHER: None. IMPRESSION: 1. Question mild ileus/enteritis. No gastrointestinal tract obstruction. 2. Generally unremarkable appearance of the kidneys. No abnormal enhancement, perinephric fluid and/or obstructive uropathy. Dictated by: Dictated on workstation # [id number]
[2022-10-10 13:08] VITALS: BP 120/76
== END 2022-10-10 13:08 | disposition home or self-care (01) ==
LOC: EDUNIT# 09:45 → ER 09:48
DX: R10.32 Left lower quadrant pain (principal); I10 Essential (primary) hypertension
CPT/HCPCS: 36415; 74177; 80048; 81000; 85025

== ENCOUNTER 2022-11-16 05:56 | Outpatient (CLI) | payer SELFPAY ==
[~2022-11-16] VITALS: Ht 152.4 cm; Wt 50.8 kg
== END 2022-11-16 14:15 | disposition home or self-care (01) ==
LOC: PREOP 05:56
PROVIDERS: ATTEND Surgery
DX: Z01.818 Encounter for other preprocedural examination (principal); Z12.11 Encounter for screening for malignant neoplasm of colon; R10.9 Unspecified abdominal pain

== ENCOUNTER 2022-11-27 22:08 | Emergency (ER) | payer OTHER ==
[~2022-11-27] VITALS: Ht 152.4 cm; Wt 49.9 kg
--- NOTE | 2022-11-27 22:21 | ED Syncope ---
General Chief Complaint: Dizziness/Syncope Stated Complaint: NAUSEA History of Present Illness Date Seen by Provider: Nov 27, 2022 Time Seen by Provider: 22:20 Initial Comments Follow-up with PMH of mitral valve prolapse/Zpvjf-Kbyxeezfm-Xnlzr syndrome, orthostatic hypotension, is brought in by EMS with complaints of dizziness. Patient stated that she is having a colonoscopy tomorrow and she is taking Dulcolax and MiraLAX, which has caused her to defecate a lot. Patient states that she was defecating and suddenly felt lightheaded and dizzy, and she quickly lowered herself to the ground and laid there for a few minutes. Patient states that her son then called 911 because he was concerned. Patient did not have anything to eat all day except for a couple of crackers and water. Denies fever and chills, nausea and vomiting, chest pain, palpitations, shortness of breath, cough, head strike, LOC. Allergies and Home Medications Allergies Coded Allergies: Penicillins (Unverified Allergy, Severe, BREATHING DIFFICULTY, 11/06/18) ampicillin (Unverified Allergy, Severe, BREATHING DIFFICULTY, 11/06/18) vancomycin (Unverified Allergy, Severe, BREATHING DIFFICULTY, 11/06/18) Patient Home Medication List Home Medication List Reviewed: Yes Atenolol (Atenolol) 100 Mg Tablet, 100 MG PO DAILY, (Reported) Entered as Reported by: DAVID ANDERSON on 11/06/18 1204 Review of Systems Constitutional: no symptoms reported EENTM: no symptoms reported Respiratory: no symptoms reported Cardiovascular: no symptoms reported Gastrointestinal: no symptoms reported Genitourinary: no symptoms reported Musculoskeletal: no symptoms reported Skin: no symptoms reported Psychiatric/Neurological: See HPI, Other (Dizziness) Past Ducyijp-Aohgbr-Zvirkx Hx Patient Social History Tobacco Use?: No Use of E-Cig and/or Vaping dev: No Substance use?: No Alcohol Use?: No Pt feels they are or have been: No Immunizations Up To Date Influenza Vaccine Up-to-Date: Yes; Up-to-Date First/Initial COVID19 Vaccinat: NOVEMBER 2020 Second COVID19 Vaccination Alex: DECEMBER 2020 Third COVID19 Vaccination Date: june 2022 COVID19 Vaccine Detail Manager: MODERNA Seasonal Allergies Seasonal Allergies: No Past Medical History Surgeries: Yes ( c-sections, bunions, pacemaker AND REMOVAL, CATARACTS) Appendectomy, Gallbladder, Hysterectomy, Tonsillectomy Respiratory: No Cardiac: Yes (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) Hypertension Neurological: No Reproductive Disorders: No Female Reproductive Disorders: Menstrual Problems Sexually Transmitted Disease: No HIV/AIDS: No Genitourinary: No Gastrointestinal: Yes Gastroesophageal Reflux, Hiatal Hernia Musculoskeletal: No Endocrine: No HEENT: No (READING GLASSES) Loss of Vision: Bilateral Hearing Impairment: Denies Cancer: No Psychosocial: Yes (AT TIMES) Anxiety Integumentary: No (RED SPOTS ON THIGH) Blood Disorders: No Adverse Reaction/Blood Tranf: No (N/A) Physical Exam Vital Signs Vital Signs - First Documented 11/27/22 22:10 Temp 36.7 Pulse 64 Resp 16 B/P (MAP) 114/78 (90) Pulse Ox 99 O2 Delivery Room Air Capillary Refill : Height, Weight, BMI Height: 5'0.00" Weight: 106lbs. 4.0oz. 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 Norm as Tested Cranial Nerves: Normal Hearing, Normal Speech, PERRL Coordination/Gait: Normal Gait Motor/Sensory: No Motor Deficit, No Sensory Deficit Skin: Normal Color Progress/Results/Core Measures Results/Orders Lab Results Laboratory Tests Test 11/27/22 22:14 11/27/22 22:53 Range/Units White Blood Count 13.8 H 4.3-11.0 10^3/uL Red Blood Count 4.76 3.80-5.11 10^6/uL Hemoglobin 13.2 11.5-16.0 g/dL Hematocrit 40 35-52 % Mean Corpuscular Volume 85 80-99 fL Mean Corpuscular Hemoglobin 28 25-34 pg Mean Corpuscular Hemoglobin Concent 33 32-36 g/dL Red Cell Distribution Width 14.7 H 10.0-14.5 % Platelet Count 388 130-400 10^3/uL Mean Platelet Volume 9.8 9.0-12.2 fL Immature Granulocyte % (Auto) 0 % Neutrophils (%) (Auto) 75 42-75 % Lymphocytes (%) (Auto) 15 12-44 % Monocytes (%) (Auto) 7 0-12 % Eosinophils (%) (Auto) 2 0-10 % Basophils (%) (Auto) 0 0-10 % Neutrophils # (Auto) 10.3 H 1.8-7.8 10^3/uL Lymphocytes # (Auto) 2.1 1.0-4.0 10^3/uL Monocytes # (Auto) 1.0 0.0-1.0 10^3/uL Eosinophils # (Auto) 0.3 0.0-0.3 10^3/uL Basophils # (Auto) 0.1 0.0-0.1 10^3/uL Immature Granulocyte # (Auto) 0.1 0.0-0.1 10^3/uL Sodium Level 137 135-145 MMOL/L Potassium Level 4.0 3.6-5.0 MMOL/L Chloride Level 99 98-107 MMOL/L Carbon Dioxide Level 19 L 21-32 MMOL/L Anion Gap 19 H 5-14 MMOL/L Blood Urea Nitrogen 10 7-18 MG/DL Creatinine 1.01 0.60-1.30 MG/DL Estimat Glomerular Filtration Rate 61 BUN/Creatinine Ratio 10 Glucose Level 159 H 70-105 MG/DL Calcium Level 10.4 H 8.5-10.1 MG/DL Corrected Calcium 10.0 8.5-10.1 MG/DL Magnesium Level 2.3 1.6-2.4 MG/DL Total Bilirubin 0.5 0.1-1.0 MG/DL Aspartate Amino Transf (AST/SGOT) 22 5-34 U/L Alanine Aminotransferase (ALT/SGPT) 16 0-55 U/L Alkaline Phosphatase 354 H 40-136 U/L Troponin I < 0.028 <0.028 NG/ML Total Protein 8.6 H 6.4-8.2 GM/DL Albumin 4.5 3.2-4.5 GM/DL Serum Alcohol < 10 <10 MG/DL Urine Color YELLOW Urine Clarity SL CLOUDY Urine pH 5.0 5-9 Urine Specific [place] >=1.030 1.016-1.022 Urine Protein 2+ H NEGATIVE Urine Glucose (UA) NEGATIVE NEGATIVE Urine Ketones 1+ H NEGATIVE Urine Nitrite NEGATIVE NEGATIVE Urine Bilirubin 2+ H NEGATIVE Urine Urobilinogen 0.2 < = 1.0 MG/DL Urine Leukocyte Esterase 1+ H NEGATIVE Urine RBC (Auto) TRACE-I H NEGATIVE Urine RBC NONE /HPF Urine WBC 5-10 H /HPF Urine Crystals NONE /LPF Urine Bacteria NEGATIVE /HPF Urine Casts PRESENT /LPF Urine Hyaline Casts 5-10 H /LPF Urine Mucus SMALL H /LPF Urine Culture Indicated YES Urine Opiates Screen NEGATIVE NEGATIVE Urine Oxycodone Screen NEGATIVE NEGATIVE Urine Methadone Screen NEGATIVE NEGATIVE Urine Propoxyphene Screen NEGATIVE NEGATIVE Urine Barbiturates Screen NEGATIVE NEGATIVE Ur Tricyclic Antidepressants Screen NEGATIVE NEGATIVE Urine Phencyclidine Screen NEGATIVE NEGATIVE Urine Amphetamines Screen NEGATIVE NEGATIVE Urine Methamphetamines Screen NEGATIVE NEGATIVE Urine Benzodiazepines Screen NEGATIVE NEGATIVE Urine Cocaine Screen NEGATIVE NEGATIVE Urine Cannabinoids Screen NEGATIVE NEGATIVE My Orders Orders - ESTELA NGUYEN MD Continuous Ekg Monitoring (11/27/22 22:21) Ekg Tracing (11/27/22 22:21) Alcohol (11/27/22 22:22) Cbc With Automated Diff (11/27/22 22:22) Comprehensive Metabolic Panel (11/27/22 22:22) Drug Screen Stat (Urine) (11/27/22 22:22) Magnesium (11/27/22 22:22) Ua Culture If Indicated (11/27/22 22:22) I-Stat Bedside Testing (11/27/22 22:22) Troponin I Mei (11/27/22 22:22) Chest 1 View, Ap/Pa Only (11/27/22 22:22) Ct Head Wo (11/27/22 23:20) Urine Culture (11/27/22 22:53) Ceftriaxone Iv/Im (Rocephin Iv/Im) (11/27/22 23:45) Ceftriaxone Iv/Im (Rocephin Iv/Im) (11/27/22 23:53) Ns (Ivpb) (Sodium Chloride 0.9% Ivpb Bag (11/27/22 23:54) Vital Signs/I&O 11/27/22 22:10 Temp 36.7 Pulse 64 Resp 16 B/P (MAP) 114/78 (90) Pulse Ox 99 O2 Delivery Room Air Progress Progress Note : Progress Note 1. NEAR SYNCOPE: ACUTE CYSTITIS WITH HEMATURIA - CT HEAD: Patient refused CT head in spite of going over the risks and benefits - CXR: no acute findings, read by me - EKG: non-ischemic - Troponin: undetected - CBC/ CMP: WBC is 13.8 - UA is positive for LE, RBC's, and WBC - Ceftriaxone 1gm iv STAT, since pt is NPO for tomorrow for her colonoscopy. This will cover her for 24 hrs until she is able to start her oral antibiotics for her UTI - Prescription given for Nitrofurantoin bid for 7 days - Follow up with PCP in 7 days -The patient was seen in the ED, and treated appropriately to presentation at a specific point in time. Patient is informed that there is a possibility that disease and illness can evolve and change in acuity rapidly or slowly after patient is discharged from the ER. Precautionary advice given to the patient for immediate return to ER if symptoms worsen or do not resolve, and to seek emergency care sooner rather than later. Pt also advised on the importance of PCP follow up and compliance with management and follow up plan with PCP and/or specialist, as this is part of the management plan. Pt verbally expressed understanding. Departure Impression Primary Impression: Near syncope Additional Impression: Acute cystitis with hematuria Disposition: 01 HOME, SELF-CARE Condition: Improved Departure-Patient Inst. Referrals: ANGIE MCCALL MD (PCP/Family) Primary Care Physician Patient Instructions: Near Fainting, Acute Cystitis (DC) Add. Discharge Instructions: - Ceftriaxone 1gm iv STAT, since pt is NPO for tomorrow for her colonoscopy. This will cover her for 24 hrs until she is able to start her oral antibiotics for her UTI - Prescription given for Nitrofurantoin bid for 7 days - Follow up with PCP in 7 days All discharge instructions reviewed with patient and/or family. Voiced understanding. Scripts Nitrofurantoin Macrocrystal (Nitrofurantoin) 100 Mg Capsule 100 MG PO BID for 7 Days, #14 CAP Prov: ESTELA NGUYEN MD 11/28/22 ESTELA NGUYEN MD Nov 27, 2022 22:21
[2022-11-27 22:28] LABS: BASOPHILS # (AUTO) 0.1 10^3/uL (0.0-0.1); BASOPHILS % (AUTO) 0 % (0-10); EOSINOPHILS # (AUTO) 0.3 10^3/uL (0.0-0.3); EOSINOPHILS % (AUTO) 2 % (0-10); HEMATOCRIT 40 % (35-52); HEMOGLOBIN 13.2 g/dL (11.5-16.0); LYMPHOCYTES # (AUTO) 2.1 10^3/uL (1.0-4.0); LYMPHOCYTES % (AUTO) 15 % (12-44); MEAN CORPUSCULAR HEMOGLOBIN 28 pg (25-34); MEAN CORPUSCULAR HGB CONC 33 g/dL (32-36); MEAN CORPUSCULAR VOLUME 85 fL (80-99); MEAN PLATELET VOLUME 9.8 fL (9.0-12.2); MONOCYTES % (AUTO) 7 % (0-12); NEUTROPHILS # (AUTO) 10.3 10^3/uL (1.8-7.8); NEUTROPHILS % (AUTO) 75 % (42-75); PLATELET COUNT 388 10^3/uL (130-400); WHITE BLOOD COUNT 13.8 10^3/uL (4.3-11.0)
[2022-11-27 22:33] LABS: ALBUMIN 4.5 GM/DL (3.2-4.5); CHLORIDE 99 MMOL/L (98-107); SODIUM 137 MMOL/L (135-145)
[2022-11-27 22:34] LABS: CALCIUM 10.4 MG/DL (8.5-10.1)
[2022-11-27 22:36] LABS: GLUCOSE 159 MG/DL (70-105); TOTAL PROTEIN 8.6 GM/DL (6.4-8.2)
[2022-11-27 22:37] LABS: BILIRUBIN,TOTAL 0.5 MG/DL (0.1-1.0); CARBON DIOXIDE 19 MMOL/L (21-32)
[2022-11-27 22:39] LABS: ALKALINE PHOSPHATASE 354 U/L (40-136); CREATININE SERUM 1.01 MG/DL (0.60-1.30); GFR ESTIMATED 61
[2022-11-27 22:40] LABS: BUN/CREATININE RATIO 10
[2022-11-27 22:42] LABS: ALANINE AMINOTRANSFERASE 16 U/L (0-55); MAGNESIUM 2.3 MG/DL (1.6-2.4)
[2022-11-27 23:02] LABS: CLARITY,URINE SL CLOUDY; COLOR,URINE YELLOW; GLUCOSE, URINE (UA) NEGATIVE (NEGATIVE); KETONES,URINE 1+ (NEGATIVE); LEUKOCYTE ESTERASE ,URINE 1+ (NEGATIVE); NITRITE,URINE NEGATIVE (NEGATIVE); PROTEIN,URINE 2+ (NEGATIVE)
[2022-11-27 23:21] LABS: AMPHETAMINE SCREEN, URINE NEGATIVE (NEGATIVE); BARBITURATE SCREEN URINE NEGATIVE (NEGATIVE); BENZODIAZEPINES SCREEN URINE NEGATIVE (NEGATIVE); CANNABINOID SCREEN, URINE NEGATIVE (NEGATIVE); COCAINE SCREEN URINE NEGATIVE (NEGATIVE); METHADONE STAT NEGATIVE (NEGATIVE); OPIATE SCREEN URINE NEGATIVE (NEGATIVE); OXYCODONE STAT NEGATIVE (NEGATIVE); PROPOXYPHENE STAT NEGATIVE (NEGATIVE); TRICYCLIC ANTIDEPRESSANTS SCRE NEGATIVE (NEGATIVE)
[2022-11-27 23:22] LABS: BACTERIA,URINE NEGATIVE /HPF
[2022-11-27 23:31] LABS: BILIRUBIN,URINE 2+ (NEGATIVE)
[2022-11-27] MEDS ORDERED: cefTRIAXone IV/IM 1,000 MG in NS (IVPB) 50 ML IV STA (23:45)
[2022-11-27] MEDS ORDERED: cefTRIAXone 1,000 MG VIAL (for IV or IM) ONE (23:53)
[2022-11-27] MEDS ORDERED: NS (IVPB) 50 ML ONE (23:54)
[2022-11-28] MEDS ORDERED: NITR100C PO ×2 (00:19)
[2022-11-28 00:45] VITALS: BP 116/73
--- NOTE | 2022-11-28 06:52 | Diagnostic Imaging Report ---
INDICATION: Syncope COMPARISON: None available. TECHNIQUE: Single radiograph chest dated 11/27/2022. FINDINGS: The cardiac silhouette is within normal limits in size. No significant pulmonary vascular congestion. Mild left greater than right reticular and groundglass opacities. No significant pleural effusion. No pneumothorax. No acute osseous abnormality. Surgical clips within right upper abdomen. IMPRESSION: Mild left greater than right bibasilar atelectasis and/or pneumonitis. Dictated by: Dictated on workstation # [id number]
== END 2022-11-28 00:45 | disposition home or self-care (01) ==
LOC: EDUNIT# 22:08 → ER 22:09
DX: R55 Syncope and collapse (principal); N30.01 Acute cystitis with hematuria; Z88.1 Allergy status to other antibiotic agents
CPT/HCPCS: 71045; 80053; 80306; 81000; 83735; 84484; 85025; 87088; 93005; 99284; G0480; 36415; 80320

== ENCOUNTER 2022-11-28 10:14 | Day surgery (SDC) | payer OTHER ==
[~2022-11-28] VITALS: Ht 152.4 cm; Wt 49.9 kg
[~2022-11-28 10:14] MED LIST changes: +NITR100C PO
[2022-11-28] MEDS ORDERED: LACTATED RINGERS 1,000 ML IV STA (10:18)
[2022-11-28 10:32] VITALS: BP 109/83
--- NOTE | 2022-11-28 11:12 | Progress Note-Pre Operative ---
Pre-Operative Progress Note Date of Available H&P: Nov 15, 2022 Date H&P Reviewed: Nov 28, 2022 Time H&P Reviewed: 11:11 History & Physical: H&P Reviewed, Patient Examed, No changes noted Pre-Operative Diagnosis: Screening colonoscopy ALANA HERNANDEZ DO Nov 28, 2022 11:12
--- NOTE | 2022-11-28 11:22 | Anesthesia-General Post-Op ---
MAC Patient Condition Mental Status/LOC: Same as Preop Cardiovascular: Satisfactory Nausea/Vomiting: Absent Respiratory: Satisfactory Pain: Controlled Complications: Absent Post Op Complications Complications None Follow Up Care/Instructions Patient Instructions None needed. Anesthesiology Discharge Order Discharge Order Patient is doing well, no complaints, stable vital signs, no apparent adverse anesthesia problems. No complications reported per nursing. ANDERSON TRAN CRNA Nov 28, 2022 11:22
[2022-11-28] MEDS ORDERED: PROPOFOL INJECTION 50 ML IV ONE (11:27)
[2022-11-28] MEDS ORDERED: GLYCOPYRROLATE 0.2 MG/ML (ROBINUL) 2 ML VIAL ONE (11:46)
--- NOTE | 2022-11-28 12:08 | Endoscopy Discharge Instruct ---
Endo Procedure/Findings Findings 1.: Hiatal Hernia, Gastritis 2.: Polyp 3.: Diverticulosis 4.: Internal Hemorrhoids Discharge Instructions - Activity: You might feel a little sleepy until tomorrow. This is due to the medicine you received to relax you. Until tomorrow, you should: NOT drive a car, operate machinery or power tools. NOT drink any alcoholic beverages. NOT make any important decisions or sign importortant papers. Do not return to work until tomorrow, unless otherwise instructed. Resume previous activities tomorrow. Diet: Start by taking liquids. If you tolerate liquids, advance to solid food. 1.: EGD in 3 years 2.: Colonscopy in 5 years Notify Physician - If you experience excessive bleeding, unusual abdominal pain, fever, or chest pain, contact your doctor immediately. Follow-Up: Other Follow up in my office in one week ALANA HERNANDEZ DO Nov 28, 2022 12:08
--- NOTE | 2022-11-28 12:08 | Progress Note-Post Operative ---
Post-Operative Progess Note Surgeon (s)/Chief Inspector (s) Surgeon ALANA HERNANDEZ DO Chief Inspector: Alfredo Romero, MSIII Pre-Operative Diagnosis Abd pain, Screening colonoscopy Post-Operative Diagnosis Gastritis Hiatal hernia Esophagitis Polyp diverticula int hemorrhoids Procedure & Operative Findings Date of Procedure 11/28/22 Procedure Performed/Findings EGD with bx Colonoscopy with snare polypectomy PROCEDURE NOTE: After informed consent was obtained, the patient was brought to the endoscopy suite, placed in bed in left lateral decubitus position. She was administered IV sedation by the [facility] who then monitored vitals the entire time, heart rate, blood pressure and pulse ox and the scope was inserted down the mouth through the esophagus into the stomach. On the way down, noted some moderate esophagitis, took a picture, pushed into the stomach, pushed past the antrum into the duodenum. Duodenum looked good. Pulled back and did a biopsy of antrum, then retroflexed the scope, saw 2cm AFS Grade 3 hiatal hernia, took a picture of this and then pulled the scope into the GE junction, took another picture of the hiatal hernia and then did a biopsy of the GE junction. Pushed the scope back into the stomach, suctioned all the air out of the stomach. At this point pulled the scope up the esophagus and out the mouth. Switched camera, switched gloves, went down below and started the colonoscopy. Pushed all the way to about 130 cm and pushed into the cecum. Just outside the cecum I saw a polyp and one near the ileocecal valve; removed both with a snare. I took a picture of appendiceal orifice and noted the ileocecal valve. Then slowly withdrew the scope insufflating to look circumferentially at the mcneil starting in the cecum, up the ascending colon to the hepatic flexure, then down the transverse colon to the splenic flexure and into the descending colon. Found another polyp here and also removed it with a snare polypectomy. Continued down into the sigmoid. where I saw a diverticula and then into the rectal vault. I retroflexed the scope and took a picture of the internal hemorrhoids. The patient tolerated the procedure and she recovered in the endoscopy suite. Recommended for repeat colonoscopy in 5 years Anesthesia Type IV sedation by [facility] Estimated Blood Loss Estimated blood loss (mL): scant Specimens/Packing Specimens Removed antral bx GE jxn bx cecal polyp x 2 desc colon polyp ALANA HERNANDEZ DO Nov 28, 2022 12:08
[2022-11-28 12:10] VITALS: BP 125/89
[2022-11-28 12:30] VITALS: BP 125/89
[2022-11-28 12:42] VITALS: BP 125/89
== END 2022-11-28 12:42 | disposition home or self-care (01) ==
LOC: ENDO 10:14
PROVIDERS: ATTEND Surgery
DX: Z12.11 Encounter for screening for malignant neoplasm of colon (principal); K29.50 Unspecified chronic gastritis without bleeding; B96.81 Helicobacter pylori [H. pylori] as the cause of diseases classified elsewhere; K22.70 Barrett's esophagus without dysplasia; D12.0 Benign neoplasm of cecum; D12.4 Benign neoplasm of descending colon; K63.5 Polyp of colon; K57.30 Diverticulosis of large intestine without perforation or abscess without bleeding; K44.9 Diaphragmatic hernia without obstruction or gangrene; K21.9 Gastro-esophageal reflux disease without esophagitis; K64.8 Other hemorrhoids; N39.0 Urinary tract infection, site not specified

== ENCOUNTER → 2023-01-13 | Outpatient (CLI) | payer OTHER | LOC: LAB 12:16 | PROVIDERS: ATTEND Surgery | DX: B96.81 Helicobacter pylori [H. pylori] as the cause of diseases classified elsewhere (principal) | CPT/HCPCS: 36415; 87338 ==